=== PATIENT | male | born 1995 | race Caucasian/White ===

== ENCOUNTER 2019-12-25 05:06 | Emergency (ER) | payer BC ==
[~2019-12-25] VITALS: Ht 185.4 cm; Wt 117.9 kg
--- NOTE | 2019-12-25 05:14 | NUR ---
PATIENT CAME TO ER BED 4 C/O CHEST PAIN THAT RADIATES RIGHT AND LEFT SINCE 329 OF TODAY. PATIENT STATES THAT HE JUST WOKE UP FROM THIS PAIN. ONLY USES MARIJUANA. PATIENT IS AAOX4. NO SOB. BREATHING EVENLY AND UNLABORED ON ROOM AIR. CONNECTED TO MONITOR.
[2019-12-25 05:22] VITALS: BP 155/107
--- NOTE | 2019-12-25 05:24 | NUR ---
XRAY AT BEDSIDE.
--- NOTE | 2019-12-25 05:59 | NUR ---
Patient discharged to home in stable condition. Written and verbal after care instructions given. Patient verbalizes understanding of instruction.
== END 2019-12-25 06:14 | disposition home or self-care (01) ==
LOC: ER 05:09
DX: R07.89 Other chest pain (principal); F12.10 Cannabis abuse, uncomplicated; R11.0 Nausea
CPT/HCPCS: 71045-TC

== ENCOUNTER 2020-02-04 23:42 | Emergency (ER) | payer BC ==
[~2020-02-04] VITALS: Ht 185.4 cm; Wt 117.9 kg
--- NOTE | 2020-02-04 23:56 | NUR ---
PT BIBSELF C/O SOB AND UPPER BACK PAIN X 2 WEEKS. - COVID TEST RESULTED 2 DAYS. PT STATES PCP PRESCRIBED ALBUTEROL OVER THE PHONE WITH SOME RELIEF. PT AOX4 RR EVEN AND UNLABORED. NO SOB NOTED. NO NVD AT THIS TIME. NO ACUTE DISTRESS NOTED. PT SEEN BY DR. THAKUR
[2020-02-05] MEDS ORDERED: IBUPROFEN 400 MG TABLET PO ONE
[2020-02-05] MEDS ORDERED: IBUPROFEN 400 MG TABLET ONE (00:01)
--- NOTE | 2020-02-05 00:16 | NUR ---
RADIOLOGY AT BEDSIDE FOR CXR
--- NOTE | 2020-02-05 01:46 | NUR ---
pt cleared for discharge per dr. larose. pt ambulatory with a steady gait Patient discharged to home in stable condition. Written and verbal after care instructions given. Patient verbalizes understanding of instruction.
[2020-02-05 01:47] VITALS: BP 138/77
== END 2020-02-05 01:47 | disposition home or self-care (01) ==
LOC: ER 23:42
DX: M79.18 Myalgia, other site (principal); M54.6 Pain in thoracic spine
CPT/HCPCS: 71045-TC; 73010-TC